=== PATIENT | female | born 1940 | race Caucasian/White ===

== ENCOUNTER 2016-09-08 11:25 | Emergency (ER) | payer OTHER ==
[~2016-09-08] VITALS: Ht 165.1 cm; Wt 81.6 kg
[~2016-09-08 11:25] MED LIST: CALCIUM + D3 E1 EACH PO; ESCITALOPRAM OX20 MG PO; HYDROCODONE/ACE1 TA1 PO; OMEPRAZOLE40 MG PO; TESSALON PERLE100 MG PO; ZOCOR20 M1 PO
--- NOTE | 2016-09-08 11:29 | ED CARDIAC/CP/PALPITATIONS ---
History of Present Illness General Chief Complaint: Chest Pain Stated Complaint: CHEST PAIN LAST NIGHT Source: patient, old records Exam Limitations: no limitations Vital Signs & Intake/Output Vital Signs & Intake/Output Vital Signs Date Time Temp Pulse Resp B/P Pulse O2 O2 Flow FiO2 Ox Delivery Rate 09/08 1433 97.8 63 20 137/68 99 Nasal 2.0L Cannula 09/08 1401 59 18 136/63 100 09/08 1239 99.0 70 20 100/60 98 Nasal 2.0L Cannula 09/08 1218 80 20 84/54 98 Nasal 2.0L Cannula 09/08 1203 99 Nasal 2.0L Cannula 09/08 1145 98.8 70 20 132/61 96 Nasal 2.0L Cannula 09/08 1132 97.5 71 18 93/64 95 Room Air Allergies Coded Allergies: phenobarbital (Mild, RASH 09/08/16) Reconcile Medications Calcium/Vitamin D (Calcium + D) (Unknown Strength) TAB (Unknown Dose) PO BID SUPPLEMENT (Reported) Divalproex Sodium (Divalproex Sodium ER) 500 MG TAB.ER.24H 1 TAB PO DAILY UNKNOWN (Reported) Escitalopram Oxalate 20 MG TABLET 1.5 TAB PO DAILY ANXIETY (Reported) Omeprazole 40 MG CAPSULE.DR 1 CAP PO DAILY AC GI (Reported) Pantoprazole Sodium (Protonix) 40 MG TABLET.DR 1 TAB PO DAILY GERD Simvastatin (Zocor) 20 MG TAB 1 TAB PO QPM CHOLESTEROL (Reported) Triage Nurses Notes Reviewed? yes Onset: Abrupt Duration: SUDDEN ONSET AT 12:14 AM Timing: single episode today Quality/Severity: severe, stabbing Location: central Radiation: no radiation Activities at Onset: sleep Aspirin Today: no aspirin today Associated Symptoms: DIFFICULT BREATHING HPI: This is a 75-year-old very pleasant female with history of high cholesterol, anxiety presents to the ER with chief complaint of midsternal chest pain that woke her up at 12:14 AM. She said the pain was sharp in nature nonradiating. She felt she had a hard time catching her breath at that time. The sharp pain lasted for about 15 minutes and then turned into a dull pain. Approximate half are that she went back to sleep. She did not take anything for it. This morning when she woke up at 8:00 she still felt a heaviness in her chest. No shortness of breath at this time. She was noted to be clammy upon arrival. History of similar symptoms last month and she was seen in the emergency department. She had an outpatient stress test done by Dr. Samuels on the 6 but they're still awaiting test results. She is a nonsmoker nondrinker. No history of diabetes. Positive family history of coronary disease her father of an [place] at 78 years of age. Past History Travel History Traveled to [place] past 21 day No Medical History Any Pertinent Medical History? 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 Yes Review of Systems Review of Systems Constitutional: Denies: chills, fever. EENTM: Reports: no symptoms. Respiratory: Reports: short of breath. Denies: cough, sputum production. Cardiovascular: Reports: chest pain. GI: Denies: abdominal pain. Genitourinary: Reports: no symptoms. Musculoskeletal: Reports: no symptoms. Skin: Reports: no symptoms. Neurological/Psychological: Reports: anxiety. Hematologic/Endocrine: Denies: bruising, bleeding, polyuria, polydipsia. Immunologic/Allergic: Denies: splenectomy. All Other Systems: Reviewed and Negative Physical Exam Physical Exam General Appearance: well developed/nourished, alert, awake, anxious, mild distress, CLAMMY Head: atraumatic Eyes: Bilateral: normal appearance, PERRL, EOMI. Ears, Nose, Throat: normal pharynx, normal ENT inspection, hearing grossly normal Neck: normal inspection, supple Respiratory: normal breath sounds, chest non-tender, no respiratory distress Cardiovascular: regular rate/rhythm Peripheral Pulses: 2+ radial (R), 2+ radial (L) Gastrointestinal: normal bowel sounds, soft, non-tender Extremities: normal inspection, normal capillary refill, normal range of motion, no edema Neurologic/Psych: no motor/sensory deficits Skin: intact, normal color, warm/dry Core Measures ACS in differential dx? Yes Severe Sepsis Present: No Septic Shock Present: No Progress Differential Diagnosis: AMI, myocarditis, pericarditis, pneumonia, pneumothorax, pulmonary embolism, PUD/GERD, unstable angina Plan of Care: Orders Procedure Date/time Status Heart Healthy Diet 09/08 D Active TROPONIN LEVEL 09/08 1530 Complete EKG 09/08 1530 Active TROPONIN LEVEL 09/08 1142 Complete COMPREHENSIVE METABOLIC PANEL 09/08 1142 Complete CBC WITHOUT DIFFERENTIAL 09/08 1142 Complete EKG 09/08 1126 Active Laboratory Tests 09/08/16 1545: Troponin I < 0.01 09/08/16 1215: Anion Gap 11, Estimated GFR > 60, BUN/Creatinine Ratio 17.5, Glucose 88, Calcium 9.2, Total Bilirubin 0.6, AST 27, ALT 30, Alkaline Phosphatase 57, Troponin I < 0.01, Total Protein 6.2 L, Albumin 3.7, Globulin 2.5, Albumin/Globulin Ratio 1.5 09/08/16 1145: CBC w Diff NO MAN DIFF REQ, RBC 4.40, MCV 89.4, MCH 30.9, RDW 14.8 H, MPV 7.8, Gran % 65.2, Lymphocytes % 20.1 L, Monocytes % 10.1 H, Eosinophils % 3.0, Basophils % 1.6, Absolute Granulocytes 4.0, Absolute Lymphocytes 1.2, Absolute Monocytes 0.6, Absolute Eosinophils 0.2, Absolute Basophils 0.1, PUBS MCHC 34.6 1:07 PM PATIENT RESTING COMFORTABLY. TROPONIN NEGATIVE. WAITING STRESS TEST RESULTS FROM DR SAMUELS. 09/08/2016 4:26:17 PM Patient comp of blood this time. No chest pain she was able to eat lunch without any discomfort. Troponin [address] chest and her grandma's negative for aneurysm or dissection. Stress test in the beginning of July was read as negative by Dr. Samuels. Echocardiogram showed questionable aneurysm which was confirmed negative by CT. I feel at this point she is safe for discharge with outpatient continued further cardiology workup. Dr. Samuels paged. (ELLA SINGH,CESAR) Diagnostic Imaging: Viewed by Me: CT Scan. Discussed w/RAD: CT Scan. Radiology Impression: PATIENT: STEPHANIE CLIFTON PRESENT AGE: 75 PATIENT ACCOUNT NO: [id number] : [birth year] LOCATION: [facility] ORDERING PHYSICIAN: CESAR JARAMILLO MD SERVICE DATE: 09/08/16 EXAM TYPE: CAT - CTA CHEST-AORTIC DISSECTION EXAM: CTA Chest CLINICAL INDICATION: Chest pain. Recent echo showing dilated aortic aneurysm. TECHNIQUE: Noncontrast imaging through the chest was obtained. This was followed by multidetector CTA scan of the chest following the intravenous administration of 108 cc Optiray 350. Coronal and sagittal reformatted images were also obtained at the acquisition workstation. DLP: 752 mGy-cm COMPARISON: Chest x-ray 08/10/[address] 07/10/2012 FINDINGS: VASCULAR: Ascending aorta is normal in caliber measuring 3.5 x 3.2 cm in maximum dimension. No evidence of dissection. The aortic arch is normal in caliber and demonstrates only mild atherosclerotic disease. Visualized portions of the bilateral carotid, vertebral and subclavian arteries are patent. Evaluation of great vessel takeoff from the aortic arch is mildly limited secondary to streak artifact from adjacent venous contrast. The descending thoracic aorta is ectatic but normal in caliber. Maximum dimension of the descending thoracic aorta is 2.6 x 2.3 cm. The celiac axis and superior mesenteric artery are partially visualized and grossly patent. Opacified portions of the pulmonary arteries and pulmonary veins are grossly unremarkable. NON-VASCULAR: Central airways are patent. Lungs are well aerated. Mild dependent atelectasis. No focal consolidation. No pleural effusion or pneumothorax. Stable 2 mm pulmonary nodule of the left lower lobe (image 222/506, series 5). 3 mm pulmonary nodule in the right middle lobe, previously 2 mm. (image 202). The heart is normal in size. No pericardial effusion. Scattered small mediastinal lymph nodes are not pathologically enlarged. No hilar or axillary lymphadenopathy. Visualized portion of the upper abdomen are grossly unremarkable. Diffuse osteopenia with degenerative changes of the spine. Prominent degenerative changes of the left shoulder including the intra- articular bodies are also appreciated. IMPRESSION: 1. Normal caliber thoracic aorta without evidence for dissection. 2. 2 and 3 mm pulmonary nodules as described above. Follow-up as clinically indicated. DICTATED BY: DARIO PA MD DATE/TIME DICTATED:09/08/161346 DATA MODELING ARCHITECT:NELLY DATE/TIME TRANSCRIBED:09/08/161346 CONFIDENTIAL, DO NOT COPY WITHOUT APPROPRIATE AUTHORIZATION. <Electronically signed in Other Vendor System> SIGNED BY: DARIO PA MD 09/08/16 1409 Initial ED EKG: NSR, ST DEPRESSION/T WAVE INVERSION 1/AVL Prior EKG: unchanged Rhythm Strip: normal sinus rhythm Departure Departure Time of Disposition: 1623 Disposition: HOME OR SELF CARE Condition: Stable Clinical Impression Primary Impression: Chest pain at rest Referrals: ABRIL SINGH,ALEJANDRA SALMERON MD,JIM Terrazas (PCP/Family) Additional Instructions: Follow-up with your primary care doctor as well as with Dr. Samuels in the office. Continue regular medications. Take Protonix for the next 2 weeks to see if this helps with her symptoms. Please return immediately to the ER for any changing or worsening symptoms. Departure Forms: Customer Survey General Discharge Information Prescriptions: Current Visit Scripts Pantoprazole Sodium (Protonix) 1 TAB PO DAILY #14 TAB Critical Care Note Critical Care Note Critical Care Time: non-applicable
[2016-09-08] MEDS ORDERED: DIVALPROEX SOD500 M3 PO (11:48)
[2016-09-08 11:53] LABS: ABSOLUTE BASOPHIL COUNT 0.1 /CUMM (0.0-0.2); ABSOLUTE EOSINOPHIL COUNT 0.2 /CUMM (0.0-0.7); ABSOLUTE LYMPH COUNT 1.2 /CUMM (1.2-3.4); ABSOLUTE MONOCYTE COUNT 0.6 /CUMM (0.10-0.60); BASOPHIL % 1.6 % (0.0-2.0); GRANULOCYTE % 65.2 % (42.2-75.2); HEMATOCRIT 39.4 % (37-47); MEAN CORPUSCULAR HGB 30.9 PG (27.0-31.0); MEAN CORPUSCULAR HGB CONC 34.6 G/DL (33.0-37.0); MEAN CORPUSCULAR VOLUME 89.4 FL (81.0-99.0); MEAN PLATELET VOLUME 7.8 FL (7.4-10.4); PLATELET COUNT 271 /CUMM (130-400); RBC DISTRIBUTION WIDTH 14.8 % (11.5-14.5); WHITE BLOOD CELL COUNT 6.1 /CUMM (4.8-10.8)
--- NOTE | 2016-09-08 14:09 | CT SCAN REPORT ---
EXAM: CTA Chest CLINICAL INDICATION: Chest pain. Recent echo showing dilated aortic aneurysm. TECHNIQUE: Noncontrast imaging through the chest was obtained. This was followed by multidetector CTA scan of the chest following the intravenous administration of 108 cc Optiray 350. Coronal and sagittal reformatted images were also obtained at the acquisition workstation. DLP: 752 mGy-cm COMPARISON: Chest x-ray 08/10/[address] 07/10/2012 FINDINGS: VASCULAR: Ascending aorta is normal in caliber measuring 3.5 x 3.2 cm in maximum dimension. No evidence of dissection. The aortic arch is normal in caliber and demonstrates only mild atherosclerotic disease. Visualized portions of the bilateral carotid, vertebral and subclavian arteries are patent. Evaluation of great vessel takeoff from the aortic arch is mildly limited secondary to streak artifact from adjacent venous contrast. The descending thoracic aorta is ectatic but normal in caliber. Maximum dimension of the descending thoracic aorta is 2.6 x 2.3 cm. The celiac axis and superior mesenteric artery are partially visualized and grossly patent. Opacified portions of the pulmonary arteries and pulmonary veins are grossly unremarkable. NON-VASCULAR: Central airways are patent. Lungs are well aerated. Mild dependent atelectasis. No focal consolidation. No pleural effusion or pneumothorax. Stable 2 mm pulmonary nodule of the left lower lobe (image 222/506, series 5). 3 mm pulmonary nodule in the right middle lobe, previously 2 mm. (image 202). The heart is normal in size. No pericardial effusion. Scattered small mediastinal lymph nodes are not pathologically enlarged. No hilar or axillary lymphadenopathy. Visualized portion of the upper abdomen are grossly unremarkable. Diffuse osteopenia with degenerative changes of the spine. Prominent degenerative changes of the left shoulder including the intra-articular bodies are also appreciated. IMPRESSION: 1. Normal caliber thoracic aorta without evidence for dissection. 2. 2 and 3 mm pulmonary nodules as described above. Follow-up as clinically indicated.
[2016-09-08] MEDS ORDERED: PROTONIX40 M3 PO (16:25)
[2016-09-08 16:34] VITALS: BP 114/54
== END 2016-09-08 16:39 ==
LOC: ERH 11:25
PROVIDERS: Emergency Medicine
DX: R07.9 Chest pain, unspecified (principal)
CPT/HCPCS: 93005; 93010; 96360

== ENCOUNTER 2016-12-03 12:25 | Emergency (ER) | payer OTHER ==
[~2016-12-03] VITALS: Ht 165.1 cm; Wt 79.4 kg
[~2016-12-03 12:25] MED LIST changes: +DIVALPROEX SOD500 M3 PO; +PROTONIX40 M3 PO
--- NOTE | 2016-12-03 13:13 | ED HEAD/FACIAL INJ COMPLAINT ---
History of Present Illness General Chief Complaint: Fall Stated Complaint: FALL TUESDAY AT HOME NOW BLACK LEFT EYE Source: patient Exam Limitations: no limitations Vital Signs & Intake/Output Vital Signs & Intake/Output Vital Signs Date Time Temp Pulse Resp B/P Pulse O2 O2 Flow FiO2 Ox Delivery Rate 12/03 1525 98.7 63 18 122/58 96 12/03 1434 97.4 12/03 1331 97.4 12/03 1238 97.4 96 18 109/70 100 Room Air ED Intake and Output 12/04 0000 12/03 1200 Intake Total Output Total Balance Patient 175 lb Weight Allergies Coded Allergies: phenobarbital (Mild, RASH 09/08/16) Reconcile Medications Calcium Carb & Citrate/Vit D3 (Calcium + D3 ER Tablet) 600 MG CALCIUM-500 UNIT TABLET.ER 1 TAB PO DAILY SUPPLEMENT (Reported) Divalproex Sodium (Divalproex Sodium ER) 500 MG TAB.ER.24H 1 TAB PO QPM SLEEP (Reported) Escitalopram Oxalate 20 MG TABLET 1.5 TAB PO DAILY ANXIETY (Reported) Pantoprazole Sodium (Protonix) 40 MG TABLET.DR 1 TAB PO DAILY GERD Simvastatin (Zocor*) 20 MG TABLET 1 TAB PO QPM CHOLESTEROL (Reported) Triage Note: PT STATES THAT SHE TRIPPED AND FELL TUESDAY HITTING THE L SIDE OF HER FOREHEAD ON THE FLOOR, PT NOTED WITH BRUISING TO FOREHEAD AND L EYE. DENIES LOC. DENIES THINNERS. PT COMPLAINS OF SLIGHT NAUSEA Triage Nurses Notes Reviewed? yes HPI: This patient is a 76-year-old female who is brought into the emergency department today accompanied by a family member for evaluation of fall. The patient reported that on Tuesday she was leaving a friend's apartment when she tripped over the leg of a chair. She reported that she fell face first landing on the left side of her face and left elbow. She reported that she has been having soreness over her left eye where there is a black eye and her left forehead. She has been taking Advil which mildly helped her symptoms. She also reported some soreness in her left elbow which is worse with certain movements. She also noticed some pain over her sternum when she palpates the area. The patient reported that she has been having intermittent headaches. She also has some mild nausea. No blurry vision, syncope, loss of consciousness, abdominal pain, chest pain, difficulty breathing, or any other associated symptoms. (JERZY MOSS PA-C) Past History Travel History Traveled to [place] past 21 day No Medical History Any Pertinent Medical History? 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 No (JERZY MOSS PA-C) Review of Systems Review of Systems Constitutional: Reports: no symptoms. EENTM: Reports: no symptoms. Respiratory: Reports: no symptoms. Cardiovascular: Reports: no symptoms. GI: Reports: see HPI. Genitourinary: Reports: no symptoms. Musculoskeletal: Reports: see HPI. Skin: Reports: see HPI. Neurological/Psychological: Reports: see HPI. All Other Systems: Reviewed and Negative (JERZY MOSS PA-C) Physical Exam Physical Exam General Appearance: well developed/nourished, no apparent distress, alert, awake Cranial Nerves: normal hearing, normal speech, PERRL Comments: Well-developed well-nourished person in no acute distress HEENT: Normal EENT exam, head normocephalic, no bony deformities/step-offs of the skull, mild tenderness to palpation over the left aspect of the forehead with overlying ecchymosis. Ecchymosis surrounding left orbital region PERRLA bilaterally. EOMI bilaterally with no nystagmus and no pain elicited on extraocular muscle movements No rhinorrhea. No otorrhea Neck: Supple, no lymphadenopathy. No midline tenderness. Full range of motion Back: Normal gait Cardiovascular: Regular rate and rhythm with no murmurs, rubs, or gallops Respiratory: Mild tenderness to palpation over the xiphoid process. No respiratory distress. Breath sounds clear to auscultation bilaterally Extremity: Normal equal pulses Left upper extremity: Full range of motion of the elbow, and wrist. No bony or muscular deformities appreciated. No effusions or overlying erythema or ecchymosis to the joint spaces. Range of motion at the shoulder limited at 90 with abduction. Mild tenderness to palpation over the acromioclavicular joint space. Radial brachial pulses 2+ and strong Neuro: Alert oriented x3, cranial nerves II through XII grossly intact. Skin: No appreciable rash on exposed skin, skin is warm and dry. Psych: Mood and affect is normal (ISA COON,JERZY) Progress Differential Diagnosis: c-spine injury, facial fracture, globe injury, ICH, orbit fracture, skull fracture, EXTREMITY INJURY Plan of Care: Orders Procedure Date/time Status CT CHEST WO IV CONTRAST 12/03 1302 Active Diagnostic Imaging: Viewed by Me: Radiology Read, CT Scan. Discussed w/RAD: Radiology Read, CT Scan. Radiology Impression: PATIENT: STEPHANIE CLIFTON PRESENT AGE: 76 PATIENT ACCOUNT NO: [id number] : 38 LOCATION: [facility] ORDERING PHYSICIAN: JERZY MOSS PA-C SERVICE DATE: 12/03/16-1302 EXAM TYPE: RAD - XRY-SHOULDER COMPLETE-LEFT EXAMINATION: XR SHOULDER, LEFT CLINICAL INFORMATION: Fall. COMPARISON: Prior chest x-rays dating back to 12/26/2014 TECHNIQUE: 5 views of the left shoulder of the left shoulder. FINDINGS: There is moderate degenerative change at the glenohumeral joint with a sizable marginal osteophyte along the inferior humeral head. There is inferior joint space loss. There is some sclerosis involving the humeral head which is likely on a degenerative basis. No discrete fracture lines are evident. The acromioclavicular joint appears mildly degenerated as well. No dislocation is visualized. The visualized lung appears clear and the imaged ribs are intact. There is a small well-corticated ossific density projecting over the glenoid on certain views. IMPRESSION: Moderate degenerative change of the left glenohumeral joint without convincing superimposed fracture or dislocation. DICTATED BY: REHANA QUIROS MD DATE/TIME DICTATED:12/03/161339 RECORDER OF DEEDS:NELLY DATE/ TIME TRANSCRIBED:12/03/161339 CONFIDENTIAL, DO NOT COPY WITHOUT APPROPRIATE AUTHORIZATION. <Electronically signed in Other Vendor System> SIGNED BY: REHANA QUIROS MD 12/03/16 1347, PATIENT: STEPHANIE CLIFTON PRESENT AGE: 76 PATIENT ACCOUNT NO: [id number] : 38 LOCATION: [facility] ORDERING PHYSICIAN: JERZY MOSS PA-C SERVICE DATE: 12/03/163254 EXAM TYPE: CAT - CT CERV SPINE WO IV CONTRAST; CT HEAD WO IV CONTRAST; CT MAXILLOFACIAL W/O CON EXAMINATION: CT SCAN OF THE HEAD, FACE, AND CERVICAL SPINE. CLINICAL INFORMATION: Fall. Evaluate for intracranial hemorrhage and fracture. COMPARISON: CT scan of the head 08/10/2016. TECHNIQUE: Nut Feeder images were obtained. CT acquisition of the head, face, and cervical spine was performed without the intravenous administration of contrast. Data was reformatted into multiplanar images at the acquisition workstation. DLP: 1503.76 mGy-cm. FINDINGS: Head: There is no acute intracranial hemorrhage or abnormal extra-axial collection. No intracranial mass effect or midline shift. Lateral and third ventricles are proportionate to the subarachnoid spaces. No hydrocephalus. There are ill-defined foci of hypoattenuation within the periventricular white matter most likely represent a chronic manifestation of small vessel ischemia. Rico-white matter differentiation is otherwise preserved and there is no evidence of acute territorial infarct. The calvarium and skull base are intact. Mastoid air cells and middle ear cavities are well aerated. Face: The nasal bones are intact. The zygomatic arches, pterygoid processes, and the maxillary alveolar ridge are intact. The mandible is intact. The temporomandibular joints are symmetric. Paranasal sinuses are well aerated and the major paranasal sinus drainage pathways are widely patent. Globes are symmetric. There is no retrobulbar mass or inflammation. The lamina papyracea and orbital floors are intact. Orbital apices are unremarkable. Cervical spine: There is slight anterolisthesis of C3 on C4 and slight anterolisthesis of C4 on C5 that appears be related to facet degenerative changes at these 2 levels. Vertebral alignment is otherwise maintained in the sagittal dimension. Vertebral body heights are preserved. There is no evidence of acute fracture. No abnormal prevertebral soft tissue swelling. There is advanced degenerative arthrosis with hypertrophic spurring of the anterior C1 arch and the odontoid tip. Grossly there is no evidence of bony canal compromise. Minimal uncovertebral joint spurring at C5-C6 and C6-C7. Grossly no evidence of bony neuroforaminal encroachment. Soft tissues of the neck are unremarkable. Lung apices are clear. IMPRESSION: Head and face: No acute intracranial hemorrhage. No acute maxillofacial fracture. Cervical spine: There is no acute cervical spine fracture. There is slight chronic anterolisthesis of C3 on C4 and C4-C5 related to facet degenerative changes at these 2 levels. DICTATED BY: GONZALEZ DIXON MD DATE/TIME DICTATED:12/03/161353 RECORDER OF DEEDS:NELLY DATE/TIME TRANSCRIBED:12/03/161353 CONFIDENTIAL, DO NOT COPY WITHOUT APPROPRIATE AUTHORIZATION. <Electronically signed in Other Vendor System> SIGNED BY: GONZALEZ DIXON MD 12/03/16 1406, PATIENT: STEPHANIE CLIFTON PRESENT AGE: 76 PATIENT ACCOUNT NO: [id number] : 38 LOCATION: [facility] ORDERING PHYSICIAN: JERZY MOSS PA-C SERVICE DATE: 12/03/16 EXAM TYPE: CAT - CT CHEST WO IV CONTRAST EXAMINATION: CT CHEST WITHOUT CONTRAST CLINICAL INFORMATION: Pain after fall. Evaluate for fracture. COMPARISON: Previous chest CTA August 2016 and chest x-ray July 2016. TECHNIQUE: Multidetector volumetric CT imaging of the chest was done. Axial MIP volume rendering provided. Sagittal and coronal reformatted images were obtained. DLP: 284 mGy-cm FINDINGS: REFINING STILL OPERATOR: Unremarkable. LUNGS: There are several small calcified pulmonary nodules. The largest measures 3 mm in the right upper lobe axial image 227 series 4. The lungs are otherwise clear. MEDIASTINUM: The thoracic aorta is tortuous and upper normal in size. No mediastinal hematoma is seen. There are no enlarged mediastinal lymph nodes. There is no pericardial effusion. PLEURA: There is no pleural effusion or pneumothorax. AXILLA: No chest wall mass or axillary adenopathy. UPPER ABDOMEN: Unremarkable. OSSEOUS STRUCTURES: There are degenerative changes of the spine. There are degenerative changes at the shoulder joints, left greater than right. No fracture is seen. IMPRESSION: No evidence for acute disease in the chest. DICTATED BY: PILI MENDOZA MD DATE/TIME DICTATED:12/03/161353 RECORDER OF DEEDS:NELLY DATE/ TIME TRANSCRIBED:12/03/161353 CONFIDENTIAL, DO NOT COPY WITHOUT APPROPRIATE AUTHORIZATION. <Electronically signed in Other Vendor System> SIGNED BY: PILI MENDOZA MD 12/03/16 1506 (JERZY MOSS PA-C) Departure Departure Disposition: HOME OR SELF CARE Condition: Stable Clinical Impression Primary Impression: Fall Qualifiers: Encounter type: initial encounter Qualified Code: W19.XXXA - Unspecified fall, initial encounter Referrals: JIM SALMERON MD, V. (PCP/Family) Additional Instructions: Continue to take [id number] Advil as needed for pain and inflammation. Follow-up with your primary care physician. You may also follow-up with [facility], phone #[phone], for further evaluation. Return for any worsening symptoms or concerns. Departure Forms: Customer Survey General Discharge Information (JERZY MOSS PA-C) PA/SUBSTANCE ABUSE PREVENTION COORDINATOR Co-Sign Statement Statement: ED Attending supervision documentation- [X] I saw and evaluated the patient. I have also reviewed all the pertinent lab results and diagnostic results. I agree with the findings and the plan of care as documented in the PA's/SUBSTANCE ABUSE PREVENTION COORDINATOR's documentation. [X] I have reviewed the ED Record and agree with the PA's/SUBSTANCE ABUSE PREVENTION COORDINATOR's documentation. [] Additions or exceptions (if any) to the PAs/SUBSTANCE ABUSE PREVENTION COORDINATOR's note and plan are summarized below: [] (ELLA SINGH,CESAR)
--- NOTE | 2016-12-03 13:47 | RADIOLOGY REPORT ---
EXAMINATION: XR SHOULDER, LEFT CLINICAL INFORMATION: Fall. COMPARISON: Prior chest x-rays dating back to 12/26/2014 TECHNIQUE: 5 views of the left shoulder of the left shoulder. FINDINGS: There is moderate degenerative change at the glenohumeral joint with a sizable marginal osteophyte along the inferior humeral head. There is inferior joint space loss. There is some sclerosis involving the humeral head which is likely on a degenerative basis. No discrete fracture lines are evident. The acromioclavicular joint appears mildly degenerated as well. No dislocation is visualized. The visualized lung appears clear and the imaged ribs are intact. There is a small well-corticated ossific density projecting over the glenoid on certain views. IMPRESSION: Moderate degenerative change of the left glenohumeral joint without convincing superimposed fracture or dislocation.
--- NOTE | 2016-12-03 14:06 | CT SCAN REPORT ---
EXAMINATION: CT SCAN OF THE HEAD, FACE, AND CERVICAL SPINE. CLINICAL INFORMATION: Fall. Evaluate for intracranial hemorrhage and fracture. COMPARISON: CT scan of the head 08/10/2016. TECHNIQUE: Specimen Preparation Assistant images were obtained. CT acquisition of the head, face, and cervical spine was performed without the intravenous administration of contrast. Data was reformatted into multiplanar images at the acquisition workstation. DLP: 1503.76 mGy-cm. FINDINGS: Head: There is no acute intracranial hemorrhage or abnormal extra-axial collection. No intracranial mass effect or midline shift. Lateral and third ventricles are proportionate to the subarachnoid spaces. No hydrocephalus. There are ill-defined foci of hypoattenuation within the periventricular white matter most likely represent a chronic manifestation of small vessel ischemia. Rico-white matter differentiation is otherwise preserved and there is no evidence of acute territorial infarct. The calvarium and skull base are intact. Mastoid air cells and middle ear cavities are well aerated. Face: The nasal bones are intact. The zygomatic arches, pterygoid processes, and the maxillary alveolar ridge are intact. The mandible is intact. The temporomandibular joints are symmetric. Paranasal sinuses are well aerated and the major paranasal sinus drainage pathways are widely patent. Globes are symmetric. There is no retrobulbar mass or inflammation. The lamina papyracea and orbital floors are intact. Orbital apices are unremarkable. Cervical spine: There is slight anterolisthesis of C3 on C4 and slight anterolisthesis of C4 on C5 that appears be related to facet degenerative changes at these 2 levels. Vertebral alignment is otherwise maintained in the sagittal dimension. Vertebral body heights are preserved. There is no evidence of acute fracture. No abnormal prevertebral soft tissue swelling. There is advanced degenerative arthrosis with hypertrophic spurring of the anterior C1 arch and the odontoid tip. Grossly there is no evidence of bony canal compromise. Minimal uncovertebral joint spurring at C5-C6 and C6-C7. Grossly no evidence of bony neuroforaminal encroachment. Soft tissues of the neck are unremarkable. Lung apices are clear. IMPRESSION: Head and face: No acute intracranial hemorrhage. No acute maxillofacial fracture. Cervical spine: There is no acute cervical spine fracture. There is slight chronic anterolisthesis of C3 on C4 and C4-C5 related to facet degenerative changes at these 2 levels.
--- NOTE | 2016-12-03 15:06 | CT SCAN REPORT ---
EXAMINATION: CT CHEST WITHOUT CONTRAST CLINICAL INFORMATION: Pain after fall. Evaluate for fracture. COMPARISON: Previous chest CTA August 2016 and chest x-ray July 2016. TECHNIQUE: Multidetector volumetric CT imaging of the chest was done. Axial MIP volume rendering provided. Sagittal and coronal reformatted images were obtained. DLP: 284 mGy-cm FINDINGS: DISTRIBUTION MANAGER: Unremarkable. LUNGS: There are several small calcified pulmonary nodules. The largest measures 3 mm in the right upper lobe axial image 227 series 4. The lungs are otherwise clear. MEDIASTINUM: The thoracic aorta is tortuous and upper normal in size. No mediastinal hematoma is seen. There are no enlarged mediastinal lymph nodes. There is no pericardial effusion. PLEURA: There is no pleural effusion or pneumothorax. AXILLA: No chest wall mass or axillary adenopathy. UPPER ABDOMEN: Unremarkable. OSSEOUS STRUCTURES: There are degenerative changes of the spine. There are degenerative changes at the shoulder joints, left greater than right. No fracture is seen. IMPRESSION: No evidence for acute disease in the chest.
[2016-12-03 15:25] VITALS: BP 122/58
== END 2016-12-03 15:35 ==
LOC: ERH 12:25
DX: S00.12XA Contusion of left eyelid and periocular area, initial encounter (principal); S00.83XA Contusion of other part of head, initial encounter; M25.522 Pain in left elbow; R07.2 Precordial pain; R51 Headache; R11.0 Nausea; W18.09XA Striking against other object with subsequent fall, initial encounter
CPT/HCPCS: 73030-LT; J3101